=== PATIENT | female | born 1960 | race Caucasian/White ===

== ENCOUNTER 2019-08-08 11:53 | Outpatient (CLI) | payer OTHER | END 2019-08-08 23:59 | disposition home or self-care (01) | LOC: CFH 11:53 | PROVIDERS: ATTEND Radiology Radiation Oncology | DX: C79.51 Secondary malignant neoplasm of bone (principal) | CPT/HCPCS: 72158 ==

== ENCOUNTER → 2019-10-06 | Outpatient (CLI) | payer OTHER | END | disposition home or self-care (01) | LOC: EDSTATUS 09-02 10:00 → ROC 08:40 | PROVIDERS: ATTEND Radiology Radiation Oncology | DX: C69.42 Malignant neoplasm of left ciliary body (principal) | CPT/HCPCS: 99212; G0463 ==